=== PATIENT | female | born 1980 | race African-American/Black ===

== ENCOUNTER 2017-02-01 09:36 | Emergency (ER) | payer OTHER ==
[2017-02-01 09:39] VITALS: BP 146/79; PULSE 74; TEMP 98.2; BMI 25.3
--- NOTE | 2017-02-01 09:49 | PDOC ---
History of Present Illness - General Chief Complaint: Eye Problem Stated Complaint: EYE INJURY Time Seen by Provider: 02/01/17 09:45 History Source: Patient Exam Limitations: No Limitations - History of Present Illness Initial Comments: 02/01/17 09:53 CHIEF COMPLAINT: Exposure to liquid from [employer] HISTORY OF PRESENT ILLNESS: Patient is a 36-year-old female employee [employer] was using a [employer] to disinfect her work area when liquid splashed into her left eye. She placed systain in her eye and flushed it. Now feeling irritation to the left eye. REVIEW OF SYSTEMS: GENERAL/CONSTITUTIONAL: No fever or chills. No weakness. No weight change. HEAD, EYES, EARS, NOSE AND THROAT: No change in vision. Irritation to the left eye. No ear pain or discharge. No sore throat. RESPIRATORY: No cough, wheezing, or hemoptysis. SKIN : No rash or easy bruising. NEUROLOGIC: No headache, vertigo, loss of consciousness, or loss of sensation. HEMATOLOGIC/LYMPHATIC: No lymphadenopathy ALLERGIC/IMMUNOLOGIC: No hives or skin allergy. No latex allergy. PHYSICAL EXAM: GENERAL: The patient is awake, alert, and fully oriented, in no acute distress. HEAD: Normal with no signs of trauma. EYES: Pupils equal, round and reactive to light, extraocular movements intact, sclera anicteric, conjunctiva injected on the left, extending to limbus after fluorescein staining, no corneal abrasion noted. ENT: Ears normal, nares patent, oropharynx clear without exudates. Moist mucous membranes. NECK: Normal range of motion, supple without lymphadenopathy, JVD, or masses. LUNGS: Breath sounds equal, clear to auscultation bilaterally. No wheezes, and no crackles. NEUROLOGICAL: Cranial nerves II through XII grossly intact. Normal speech, normal gait. SKIN: No erythema no facial edema. Warm, Dry, normal turgor, no rashes or lesions noted. Past History - Past Medical History Allergies/Adverse Reactions: Allergies Allergy/AdvReac Type Severity Reaction Status Date / Time No Known Allergies Allergy Verified 02/01/17 09:40 Home Medications: Ambulatory Orders NK [No Known Home Medication] 02/01/17 Other medical history: PATIENT DENIES MEDICAL HISTORY - Psycho/Social/Smoking Cessation Hx Anxiety: No Suicidal Ideation: No Smoking History: Never smoked Hx Alcohol Use: No Drug/Substance Use Hx: No *Physical Exam - Vital Signs Last Vital Signs Temp Pulse Resp BP Pulse Ox 98.2 F 74 16 146/79 100 02/01/17 09:37 02/01/17 09:37 02/01/17 09:37 02/01/17 09:37 02/01/17 09:37 Medical Decision Making - Medical Decision Making 02/01/17 09:47 A/P: Exposure to [employer] solution in the right eye. Poison control notified at 9:48 am. Spoke to Uvaldo Pacheco. Told to flush eye, flushed with normal saline. Patient reports that she feels irritation to the left eye. Visual acuity is 20/20. OK to DC home with monitoring, if increased pain, visual disturbance or other concerns return to the ER. 02/01/17 11:47 *DC/Admit/Observation/Transfer Diagnosis at time of Disposition: Chemical insult, eye Qualifiers: Encounter type: initial encounter Laterality: left Qualified Code(s): T26.92XA - Corrosion of left eye and adnexa, part unspecified, initial encounter - Discharge Dispostion Disposition: HOME Condition at time of disposition: Stable Admit: No - Referrals Referrals: Brigitte Suero MD [Primary Care Provider] - Brandt Landeros MD [Staff Physician] - - Patient Instructions Printed Discharge Instructions: How to Instill Eye Drops Additional Instructions: Please refrain from putting makeup on eye. no other medication to eye. Follow up with optho if difficulty with vision or increased pain - Post Discharge Activity Work/School Note: Back to Work
== END 2017-02-01 11:17 | disposition home or self-care (01) ==
LOC: JERFT 09:36
DX: T26.92XA Corrosion of left eye and adnexa, part unspecified, initial encounter (principal); X58.XXXA Exposure to other specified factors, initial encounter; Y93.89 Activity, other specified; Y92.239 Unspecified place in hospital as the place of occurrence of the external cause; Y99.0 Civilian activity done for income or pay
CPT/HCPCS: 99281-25